=== PATIENT | male | born 1980 | race Caucasian/White ===

== ENCOUNTER 2024-06-23 08:21 | Emergency (ER) | payer BC ==
[2024-06-23 09:06] LABS: PTT 22.1 sec (22.0-33.0); Prothrombin Time 11.2 sec (9.5-12.1)
[2024-06-23 09:27] LABS: ALT (SGPT) 46 U/L (8-55); AST (SGOT) 33 U/L (5-34); Albumin 4.3 g/dL (3.5-5.0); Alkaline Phosphatase 50 U/L (40-110); Anion Gap 19 mmol/L (10-20); BUN (Urea Nitrogen) 14 mg/dL (8.9-20.6); Bilirubin, Total 0.8 mg/dL (0.2-1.2); Calc. Creatinine Clearance 0 mL/min (70-130); Calcium 9.9 mg/dL (7.8-10.44); Carbon Dioxide 22 mmol/L (22-29); Chloride 103 mmol/L (98-107); Estimated GFR 106; Globulin 2.8 g/dL (2.4-3.5); Glucose 208 mg/dL (70-105); Magnesium 1.8 mg/dL (1.6-2.6); Potassium 3.6 mmol/L (3.5-5.1); Protein, Total 7.1 g/dL (6.0-8.3); Sodium 140 mmol/L (136-145); Troponin I Less than 0.010 ng/mL (< 0.028)
[2024-06-23 09:41] LABS: #Basophils 0.04 10x3/uL (0.0-0.2); #Eosinophils 0.03 10x3/uL (0.0-0.5); #Neutrophils 5.78 10x3/uL (1.5-8.4); %Basophils 0.5 % (0.0-2.0); %Eosinophils 0.4 % (0.0-6.0); %Lymphocytes 21.4 % (18.0-47.0); %Monocytes 6.2 % (0.0-10.0); %Neutrophils 71.3 % (40.0-75.0); Hematocrit 43.9 % (38.8-50.0); Hemoglobin 15.9 g/dL (13.5-17.5); Mean Corpuscular HGB CONC 36.2 g/dL (32.0-36.0); Mean Corpuscular Hemoglobin 30.2 pg (27.0-33.0); Mean Corpuscular Volume 83.5 fL (81.2-95.1); Mean Platelet Volume 9.8 fL (7.4-10.4); Platelet Count 236 10x3/uL (150-450); RBC Distribution Width 12.1 % (11.5-14.5); Red Blood Cell (RBC) Count 5.26 10x6/uL (4.32-5.72); White Blood Cell (WBC) Count 8.1 10x3/uL (3.5-10.5)
[2024-06-23] MEDS ORDERED: Aspirin Chewable 81 MG TAB ONE (09:57)
== END 2024-06-23 13:35 | disposition short-term general hospital (02) ==
LOC: CSHERS 08:21
DX: R55 Syncope and collapse (principal); R07.89 Other chest pain; R00.0 Tachycardia, unspecified; E11.9 Type 2 diabetes mellitus without complications; G43.909 Migraine, unspecified, not intractable, without status migrainosus; Z79.899 Other long term (current) drug therapy
CPT/HCPCS: 70450; 71275; 80053; 83735; 83880; 84146; 84443; 84484; 85025; 85610; 85730; 93005; 94760

== ENCOUNTER 2024-07-04 14:08 | Outpatient (CLI) | payer BC | END 2024-07-04 14:09 | disposition home or self-care (01) | LOC: CSHULT 14:08 | PROVIDERS: ATTEND Internal Medicine | DX: R19.03 Right lower quadrant abdominal swelling, mass and lump (principal); Z98.890 Other specified postprocedural states | CPT/HCPCS: 93923 ==